=== PATIENT | male | born 1960 | race Caucasian/White ===

== ENCOUNTER 2025-04-16 08:47 | Outpatient (CLI) | payer OTHER | END 2025-04-16 08:48 | disposition home or self-care (01) | LOC: CSHSLEEP 08:47 | PROVIDERS: ATTEND Otolaryngology | DX: G47.33 Obstructive sleep apnea (adult) (pediatric) (principal); R06.83 Snoring | CPT/HCPCS: 95810 ==

== ENCOUNTER 2025-06-21 08:30 | Outpatient (CLI) | payer OTHER ==
[2025-06-21 09:31] LABS: Hematocrit 42.2 % (38.8-50.0); Hemoglobin 14.2 g/dL (13.5-17.5)
[2025-06-21 09:46] LABS: Anion Gap 13 mmol/L (10-20); BUN (Urea Nitrogen) 13 mg/dL (8.4-25.7); Calc. Creatinine Clearance 0 mL/min (70-130); Calcium 9.1 mg/dL (7.8-10.44); Carbon Dioxide 21 mmol/L (23-31); Chloride 109 mmol/L (98-107); Glucose 101 mg/dL (80-115); Potassium 4.3 mmol/L (3.5-5.1); Sodium 139 mmol/L (136-145)
== END 2025-06-21 08:31 | disposition home or self-care (01) ==
LOC: CSHLAB 08:30
PROVIDERS: ATTEND Otolaryngology
DX: Z01.818 Encounter for other preprocedural examination (principal); G47.33 Obstructive sleep apnea (adult) (pediatric); J30.9 Allergic rhinitis, unspecified
CPT/HCPCS: 80048; 85014; 85018; 93005; 93010